=== PATIENT | female | born 1990 | race African-American/Black ===

== ENCOUNTER 2018-05-17 18:32 | Emergency (ER) | payer OTHER ==
[~2018-05-17] VITALS: Ht 162.6 cm; Wt 56.8 kg
[2018-05-17] MEDS ORDERED: IBUPROFEN 600 MG TAB PO ONE (20:00)
[2018-05-17 21:15] VITALS: BP 126/64
[2018-05-17] MEDS ORDERED: KEFL500C17 PO (21:20)
[2018-05-17] MEDS ORDERED: IBUP-1022 PO (21:20)
[2018-05-17] MEDS ORDERED: CEPHALEXIN 500 MG CAP PO ONE (21:30)
--- NOTE | 2018-05-18 09:38 | REP ---
Left forefoot series: Four views. History: Swollen first and fourth toes. Findings: Four views of the left forefoot demonstrate soft tissue swelling about the 4th toe. Overall mineralization pattern is normal. No fracture is seen. No opaque foreign body or soft tissue gas is seen. No bony erosive or destructive lesion. Impression: Soft-tissue swelling about the fourth toe. No acute bony abnormality. Electronically Signed by Keaton Toussaint MD 05/18/2018 11:28 A
== END 2018-05-17 21:34 | disposition home or self-care (01) ==
LOC: M ED 18:32
DX: L08.9 Local infection of the skin and subcutaneous tissue, unspecified (principal)

== ENCOUNTER 2019-05-29 12:14 | Emergency (ER) | payer OTHER ==
[~2019-05-29] VITALS: Ht 162.6 cm; Wt 60.6 kg
[~2019-05-29 12:14] MED LIST: IBUP-1022 PO; KEFL500C17 PO
[2019-05-29] MEDS ORDERED: ACET1TAB55 (12:22)
[2019-05-29] MEDS ORDERED: NAPR-885 (12:22)
[2019-05-29] MEDS ORDERED: PERI12LIQ (12:22)
[2019-05-29] MEDS ORDERED: PROAAER10 (12:22)
[2019-05-29] MEDS ORDERED: predniSONE 20 MG TAB PO ONE (13:45)
[2019-05-29] MEDS ORDERED: ALBUTEROL SULFATE 2.5 MG/0.5 ML INH NEB SOLN INH ONE (13:45)
[2019-05-29] MEDS ORDERED: IPRATROPIUM 0.5MG/ALBUTEROL 2.5MG INH SOL UD 3ML (DUONEB)(J7620) NEB ONE (13:45)
[2019-05-29] MEDS ORDERED: PRED20TA PO (14:51)
[2019-05-29 15:01] VITALS: BP 122/69
== END 2019-05-29 15:02 | disposition home or self-care (01) ==
LOC: M ED 12:14
DX: J98.01 Acute bronchospasm (principal); J45.901 Unspecified asthma with (acute) exacerbation; R06.02 Shortness of breath; Z79.899 Other long term (current) drug therapy

== ENCOUNTER → 2019-06-16 | Outpatient (REF) | payer OTHER ==
[~2019-06-16] MED LIST changes: +ACET1TAB55; +NAPR-885; +PERI12LIQ; +PRED20TA PO; +PROAAER10
== END ==
LOC: M SFHCLERA 18:49
PROVIDERS: ATTEND Physician Assistant
DX: R50.9 Fever, unspecified (principal)

== ENCOUNTER → 2019-07-23 | Outpatient (CLI) | payer OTHER ==
[~2019-07-23] MED LIST changes: +METHACHOLINE KIT (J7674) INH ONE
--- NOTE | 2019-07-23 11:04 | PFTRPT ---
Site: [facility], [address] [place], [address] ID: [id number] Name: TOMAS GÓMEZ Visit Date: 07/23/2019 Second ID: [id number] Referring Doctor: Kade Little MD Reviewing Doctor: Kade Little MD Coach Driver: Anna James Age: 29 : 1990 Sex: Female Race: Black Height: 64.00 Inches Weight: 133.00 Lbs BSA: 1.64 Order IDs: [id number] Requested Test(s): <RESP-PFT.BROCHOPROV> Diagnosis: R05 of albuterol for postbronchodilator. Pt was unable to maintain exhalation for duration of test. Review Status: Not Reviewed Pre-Bronch Post-Bronch Pred Actual %Pred Actual %Chng SPIROMETRY FVC (L) 3.24 2.25 69 2.35 4 FEV1 (L) 2.79 2.08 74 2.15 3 FEV1/FVC (%) 86 93 107 91 -1 FEF 25% (L/sec) 5.77 4.55 78 5.04 10 FEF 50% (L/sec) 4.58 2.80 61 3.36 19 FEF 75% (L/sec) 1.97 1.30 65 1.55 19 FEF 25-75% (L/sec) 3.32 2.44 73 3.00 22 FEF Max (L/sec) 6.89 4.56 66 5.04 10 FIVC (L) 1.29 2.15 67 FIF 50% (L/sec) 3.99 1.81 45 1.14 -37 FIF Max (L/sec) 1.87 2.57 37 Expiratory Time (sec) 2.95 2.83 -4 Back Extrap Vol (L) 0.09 0.09 -3 Time To FEFmax (sec) 0.125 0.110 -11
== END ==
LOC: M CARPUL 10:30
PROVIDERS: ATTEND Internal Medicine Pulmonary Disease
DX: R05 Cough (principal)

== ENCOUNTER 2019-08-11 16:03 | Emergency (ER) | payer OTHER ==
[~2019-08-11] VITALS: Ht 162.6 cm; Wt 57.5 kg
[~2019-08-11 16:03] MED LIST changes: -METHACHOLINE KIT (J7674) INH ONE
[2019-08-11] MEDS ORDERED: ADVA115A (16:11)
[2019-08-11] MEDS ORDERED: ONDANSETRON 4MG/2ML VIAL (J2405 PER 1MG) IV ONE (16:30)
[2019-08-11] MEDS ORDERED: KETOROLAC 30 MG/ML 1ML VIAL (J1885 PER 15MG) IV ONE (17:00)
[2019-08-11 17:03] LABS: BASO % 0.4 % (0.0-1.0); EOS # 0.2 10^3/uL (0.0-0.5); EOS % 2.5 % (0.0-3.0); HEMATOCRIT 40.6 % (36.0-47.0); LYMPH # 2.3 10^3/uL (1.5-5.0); LYMPH % 28.2 % (24.0-44.0); MEAN CORPUSCULAR HEMOGLOBIN 23.7 pg (27.0-33.0); MEAN CORPUSCULAR VOLUME 74.1 fl (80.0-96.0); MONO # 0.6 10^3/uL (0.0-0.8); MONO % 7.7 % (0.0-5.0); NEUTROPHILS # 4.9 10^3/uL (1.5-8.5); PLATELET COUNT, AUTOMATED 216 10^3/uL (150-450); RED BLOOD COUNT 5.48 10^6/uL (4.00-5.40)
[2019-08-11 17:39] LABS: ALBUMIN 4.5 GM/DL (3.2-5.2); ALT/SGPT 14 U/L (12-78); BILIRUBIN,DIRECT < 0.1 MG/DL (0.0-0.2); BILIRUBIN,TOTAL 0.4 MG/DL (0.2-1.0); LIPASE 245 U/L (73-393); TOTAL PROTEIN 7.9 GM/DL (6.4-8.2)
[2019-08-11] MEDS ORDERED: ISOVUE-370 76% 100ML VIAL (Q9967) As Ordered ONE (18:09)
--- NOTE | 2019-08-11 18:51 | REPVR ---
PROCEDURE INFORMATION: Exam: CT Abdomen And Pelvis With Contrast Exam date and time: 08/11/2019 6:15 PM Age: 29 years old Clinical indication: Abdominal pain; Localized; Right lower quadrant (rlq); Additional info: Rlq pain TECHNIQUE: Imaging protocol: Computed tomography of the abdomen and pelvis with intravenous contrast. Radiation optimization: All CT scans at this facility use at least one of these dose optimization techniques: automated exposure control; mA and/or kV adjustment per patient size (includes targeted exams where dose is matched to clinical indication); or iterative reconstruction. Contrast material: ISOVUE 370; Contrast volume: 100 ml; Contrast route: IV; COMPARISON: No relevant prior studies available. FINDINGS: Liver: Normal. No mass. Gallbladder and bile ducts: Normal. No calcified stones. No ductal dilation. Pancreas: Normal. No ductal dilation. Spleen: Normal. No splenomegaly. Adrenals: Normal. No mass. Kidneys and ureters: Normal. No hydronephrosis. Stomach and bowel: Unremarkable. No obstruction. No mucosal thickening. Appendix: Appendix was identified and is unremarkable. No periappendiceal fat stranding. Intraperitoneal space: Unremarkable. No free air. No significant fluid collection. Vasculature: Unremarkable. No abdominal aortic aneurysm. Lymph nodes: Unremarkable. No enlarged lymph nodes. Bladder: Unremarkable as visualized. Reproductive: 2.2 cm cyst in the right ovary. Bones/joints: Unremarkable. No acute fracture. Soft tissues: Unremarkable. IMPRESSION: No acute abdominal or pelvic abnormality. Electronically signed by: Cesar Zelaya On 08/11/2019 18:51:06 PM
[2019-08-11 19:06] VITALS: BP 116/70
== END 2019-08-11 19:10 | disposition home or self-care (01) ==
LOC: M ED 16:03
DX: R10.31 Right lower quadrant pain (principal); N83.291 Other ovarian cyst, right side; J45.909 Unspecified asthma, uncomplicated; Z79.899 Other long term (current) drug therapy
CPT/HCPCS: 74177; 80047; 80076; 81001; 83690; 84702; 85025; 87086; 96374; 96375; 99284; G0463; J1885; J2405; Q9967

== ENCOUNTER 2019-08-26 12:52 | Emergency (ER) | payer OTHER ==
[~2019-08-26] VITALS: Ht 162.6 cm; Wt 61.4 kg
[~2019-08-26 12:52] MED LIST changes: +ADVA115A
[2019-08-26 14:00] LABS: MONO REFLEX EBV VCA IgM NEGATIVE (NEGATIVE)
--- NOTE | 2019-08-26 14:45 | REP ---
REASON: Left neck pain. Ultrasonographic evaluation of the left neck was obtained with images of the right neck for comparison. There are no cystic or solid masses. Electronically Signed by Glenn Palencia DO 08/26/2019 04:50 P
[2019-08-26 14:54] VITALS: BP 130/76
== END 2019-08-26 14:55 | disposition home or self-care (01) ==
LOC: M ED 12:52
DX: R07.0 Pain in throat (principal); J45.909 Unspecified asthma, uncomplicated; Z79.899 Other long term (current) drug therapy

== ENCOUNTER 2019-09-19 18:56 | Emergency (ER) | payer OTHER ==
[~2019-09-19] VITALS: Ht 162.6 cm; Wt 59.1 kg
[2019-09-19] MEDS ORDERED: PANT40TA3 PO (19:08)
[2019-09-19] MEDS ORDERED: GI COCKTAIL 50ML BTL(HYOSCYAMINE/MAALOX/LIDOCAINE VISCOUS)(1:3:1) PO ONE (19:45)
[2019-09-19] MEDS ORDERED: NS 1,000 ML IV ONE (19:45)
[2019-09-19 19:59] LABS: BASO % 0.6 % (0.0-1.0); EOS # 0.2 10^3/uL (0.0-0.5); EOS % 3.2 % (0.0-3.0); HEMOGLOBIN 12.3 g/dl (12.0-15.5); LYMPH # 2.7 10^3/uL (1.5-5.0); LYMPH % 39.8 % (24.0-44.0); MEAN CORPUSCULAR HEMOGLOBIN 24.1 pg (27.0-33.0); MEAN CORPUSCULAR HGB CONC 32.4 g/dl (32.0-36.5); MEAN CORPUSCULAR VOLUME 74.4 fl (80.0-96.0); MONO # 0.6 10^3/uL (0.0-0.8); MONO % 9.2 % (0.0-5.0); NEUTROPHILS # 3.1 10^3/uL (1.5-8.5); PLATELET COUNT, AUTOMATED 191 10^3/uL (150-450); RED BLOOD COUNT 5.11 10^6/uL (4.00-5.40); WHITE BLOOD COUNT 6.7 10^3/uL (4.0-10.0)
[2019-09-19] MEDS ORDERED: ONDANSETRON 4MG/2ML VIAL IV ONE (20:00)
[2019-09-19 20:20] LABS: ALBUMIN 3.9 GM/DL (3.2-5.2); ALT/SGPT 14 U/L (12-78); BILIRUBIN,DIRECT < 0.1 MG/DL (0.0-0.2); BILIRUBIN,TOTAL 0.3 MG/DL (0.2-1.0); LIPASE 316 U/L (73-393); TOTAL PROTEIN 7.3 GM/DL (6.4-8.2)
[2019-09-19] MEDS ORDERED: SUCRALFATE 1 GM TAB PO ONE (21:15)
[2019-09-19] MEDS ORDERED: CARA1TAB6 PO (22:09)
[2019-09-19] MEDS ORDERED: LIDO2SOL17 PO (22:09)
[2019-09-19] MEDS ORDERED: MIRA3350 PO (22:09)
[2019-09-19 22:28] VITALS: BP 119/63
--- NOTE | 2019-09-20 08:22 | REP ---
Clinical: Right-sided abdominal pain. Technique: Upright view of the chest with supine and upright views of the abdomen and pelvis. Findings: Frontal upright view of the chest demonstrates no acute cardiopulmonary process or free air below the diaphragm to suspect pneumoperitoneum. Supine and upright views of the abdomen and pelvis demonstrate nonspecific bowel gas pattern without obstruction or perforation. No organomegaly. No abnormal calcifications. Skeletal structures normal for age. Impression: Nonspecific bowel gas pattern. Electronically Signed by Ector Rodriges MD 09/20/2019 08:13 A
== END 2019-09-19 22:30 | disposition home or self-care (01) ==
LOC: M ED 18:56
DX: K59.00 Constipation, unspecified (principal); J45.909 Unspecified asthma, uncomplicated; K21.9 Gastro-esophageal reflux disease without esophagitis; Z79.899 Other long term (current) drug therapy
CPT/HCPCS: 74021; 80047; 80076; 81001; 83690; 84702; 85025; 96361; 96374; 99284; J2405

== ENCOUNTER → 2019-09-28 | Outpatient (CLI) | payer OTHER ==
[~2019-09-28] MED LIST changes: +CARA1TAB6 PO; +LIDO2SOL17 PO; +MIRA3350 PO; +PANT40TA3 PO
== END ==
LOC: M LABSMTC 11:15
PROVIDERS: ATTEND Anesthesiology
DX: Z01.812 Encounter for preprocedural laboratory examination (principal); Z11.59 Encounter for screening for other viral diseases

== ENCOUNTER 2019-10-01 09:32 | Day surgery (SDC) | payer OTHER ==
[~2019-10-01] VITALS: Ht 162.6 cm; Wt 57.1 kg
[~2019-10-01 09:32] MED LIST changes: +NS 1,000 ML IV ONE
[2019-10-01] MEDS ORDERED: fentaNYL 100 MCG/2 ML INJECTION (J3010) As Ordered ONE (13:40)
[2019-10-01] MEDS ORDERED: propofoL 500 MG/50 ML VIAL As Ordered ONE (13:40)
[2019-10-01] MEDS ORDERED: LIDOCAINE 2% 100MG/5ML SDV (FOR ANES.) As Ordered ONE (13:40)
--- NOTE | 2019-10-01 13:55 | ROOR ---
Patient Name: Leonila Watson Procedure Date: 10/01/2019 1:39 PM Date of : 1990 Age: 29 Room: [facility] Gender: Female Note Status: Finalized Procedure: Upper Endoscopy + Biopsies Indications: Oropharyngeal phase dysphagia, Heartburn Providers: Adrián Nieves MD Referring MD: Bronwyn Higuera Requesting Provider: Medicines: Monitored Anesthesia Care Complications: No immediate complications. Procedure: Pre-Anesthesia Assessment: - The heart rate, respiratory rate, oxygen saturations, blood pressure, adequacy of pulmonary ventilation, and response to care were monitored throughout the procedure. The Endoscope was introduced through the mouth, and advanced to the second part of duodenum. The upper GI endoscopy was accomplished without difficulty. The patient tolerated the procedure well. Findings: The Z-line was irregular and was found 38 cm from the incisors. Multiple biopsies were obtained with cold forceps for evaluation to rule out Joseph's Esophagus randomly at the gastroesophageal junction. A small hiatal hernia was present. No other significant abnormalities were identified in a careful examination of the stomach. The exam of the duodenum was otherwise normal. Impression: - Z-line irregular, 38 cm from the incisors. - Small hiatal hernia. - Multiple biopsies were obtained at the gastroesophageal junction. - The examination was otherwise normal. Recommendation: - Patient has a contact number available for emergencies. The signs and symptoms of potential delayed complications were discussed with the patient. Return to normal activities tomorrow. Written discharge instructions were provided to the patient. - High fiber diet. - Discharge patient to home. - Continue present medications. - Await pathology results. - Telephone GI clinic for pathology results in 1 week. - Return to referring physician. - The findings and recommendations were discussed with the patient. Adrián Nieves MD Adrián Nieves MD 10/01/2019 1:55:33 PM Electronically signed by Adrián Nieves MD Number of Addenda: 0 Note Initiated On: 10/01/2019 1:39 PM Estimated Blood Loss: Estimated blood loss: none.
[2019-10-01 14:20] VITALS: BP 106/68
== END 2019-10-01 14:47 | disposition home or self-care (01) ==
LOC: M OPP 09:32
PROVIDERS: ATTEND Internal Medicine Gastroenterology
DX: K22.8 Other specified diseases of esophagus (principal); K44.9 Diaphragmatic hernia without obstruction or gangrene; R13.12 Dysphagia, oropharyngeal phase; R12 Heartburn; K21.9 Gastro-esophageal reflux disease without esophagitis; R09.89 Other specified symptoms and signs involving the circulatory and respiratory systems
CPT/HCPCS: 43239; 88305; J3010

== ENCOUNTER 2020-05-07 11:51 | Emergency (ER) | payer OTHER ==
[~2020-05-07] VITALS: Ht 162.6 cm; Wt 67.9 kg
[2020-05-07 11:51] VITALS: BP 124/58
[~2020-05-07 11:51] MED LIST changes: -NS 1,000 ML IV ONE; +PANT40TA29 PO; -PANT40TA3 PO
[2020-05-07] MEDS ORDERED: DIFL150T PO (13:19)
[2020-05-07 14:26] LABS: CHLAMYDIA DNA AMPLIFICATION NEGATIVE (NEGATIVE); GC DNA AMPLIFICATION NEGATIVE (NEGATIVE)
== END 2020-05-07 13:27 | disposition home or self-care (01) ==
LOC: M ED 11:51
DX: B37.3 Candidiasis of vulva and vagina (principal)